=== PATIENT | male | born 1960 | race Caucasian/White ===

== ENCOUNTER 2018-04-12 01:40 | Emergency (ER) | payer BC ==
[~2018-04-12] VITALS: Ht 188 cm; Wt 81.6 kg
[~2018-04-12 01:40] MED LIST: AMOXICILLIN/CLA1 TA1 PO; BAY PO; GLU850 PO; GLUCOTROL5 MG PO; MECLIZINE12.5 M1 PO; METOCLOPRAMIDE5 M1 PO; MEV20 PO; ONDANSETRON ODT8 M1 PO; RANITIDINE 150150 MG PO
[2018-04-12 01:43] VITALS: Ht 188 cm; Wt 81.6 kg
[2018-04-12 03:48] VITALS: BP 139/73
== END 2018-04-12 03:37 | disposition home or self-care (01) ==
LOC: ED 01:40
DX: M25.561 Pain in right knee (principal); M25.511 Pain in right shoulder; M54.5 Low back pain; M25.532 Pain in left wrist; M25.531 Pain in right wrist; M25.562 Pain in left knee; E11.9 Type 2 diabetes mellitus without complications
CPT/HCPCS: J1885